=== PATIENT | male | born 1975 | race Caucasian/White ===

== ENCOUNTER → 2018-10-23 | Outpatient (CLI) | payer OTHER | LOC: COL.RAD 12:44 | DX: M50.322 Other cervical disc degeneration at C5-C6 level (principal) | CPT/HCPCS: A9585 ==

== ENCOUNTER → 2019-01-12 | Outpatient (CLI) | payer OTHER ==
[~2019-01-12] VITALS: Ht 188 cm; Wt 87.0 kg
[~2019-01-12] MED LIST: ALLEGRA 180MG180 MG PO; CIALIS5 MG PO
[2019-01-12 12:47] VITALS: BP 127/69; PULSE 50
[2019-01-12 14:05] VITALS: BP 129/70; PULSE 63
[2019-01-12 14:20] VITALS: BP 121/77; PULSE 49
[2019-01-12 14:35] VITALS: BP 113/75; PULSE 59
--- NOTE | 2019-01-12 14:45 | NUR ---
PT TAKEN TO POV IN WHEELCHAIR TO LOBBY WHERE IS WAITING FOR PT.
== END ==
LOC: COL.RAD 12:26
DX: M75.111 Incomplete rotator cuff tear or rupture of right shoulder, not specified as traumatic (principal); M89.311 Hypertrophy of bone, right shoulder
CPT/HCPCS: J2250; J2704